=== PATIENT | male | born 1965 | race Caucasian/White ===

== ENCOUNTER 2017-06-14 08:06 | Emergency (ER) | payer BC ==
[~2017-06-14] VITALS: Ht 180.3 cm; Wt 136.3 kg
[~2017-06-14 08:06] MED LIST: ACIDCAP15 PO; ALPHA BRAIN PO; ASPI81TA85 PO; CENTTAB12 PO; DOXY100C PO; LISI10TA2 PO; OMEP40CA2 PO; POTA595T8 PO
[2017-06-14 09:06] LABS: BASO % 0.5 % (0.0-1.0); EOS # 0.1 K/mm3 (0.0-0.50); EOS % 0.9 % (0.0-3.0); LARGE UNSTAINED CELL # 0.1 K/mm3 (0.0-0.4); LARGE UNSTAINED CELL % 1.1 % (0.0-4.0); LYMPH # 0.8 K/mm3 (1.5-4.5); LYMPH % 10.5 % (24.0-44.0); MEAN CORPUSCULAR HEMOGLOBIN 31.4 pg (27.0-33.0); MEAN CORPUSCULAR HGB CONC 34.9 g/dl (32.0-36.5); MEAN CORPUSCULAR VOLUME 89.8 fl (80.0-96.0); MONO # 0.4 K/mm3 (0.0-0.8); MONO % 5.5 % (0.0-5.0); NEUTROPHILS # 5.5 K/mm3 (1.8-7.7); NEUTROPHILS % 81.5 % (36.0-66.0); PLATELET COUNT, AUTOMATED 212 k/mm3 (150-450); RED CELL DISTRIBUTION WIDTH 12.7 % (11.5-14.5); WHITE BLOOD COUNT 6.7 K/mm3 (4.0-10.0)
[2017-06-14] MEDS ORDERED: MORPHINE 4 MG/ML 1ML SYRINGE IV ONE (09:15)
[2017-06-14] MEDS ORDERED: NS 1,000 ML IV ONE (09:15)
[2017-06-14] MEDS ORDERED: KETOROLAC 30 MG/ML VIAL (J1885) IV ONE (09:15)
[2017-06-14] MEDS ORDERED: ONDANSETRON 4MG/2ML VIAL (J2405) IV ONE (09:15)
[2017-06-14 09:17] LABS: ALBUMIN/GLOBULIN RATIO 1.03 (1.00-1.93); ALKALINE PHOSPHATASE 73 U/L (45-117); ALT/SGPT 60 U/L (12-78); AMYLASE 59 U/L (25-115); ANION GAP 7 MEQ/L (8-16); AST/SGOT 33 U/L (15-37); BILIRUBIN,DIRECT 0.3 MG/DL (0.0-0.2); BILIRUBIN,TOTAL 1.2 MG/DL (0.2-1.0); BLOOD UREA NITROGEN 17 MG/DL (7-18); CALCIUM LEVEL 8.8 MG/DL (8.5-10.1); CARBON DIOXIDE LEVEL 26 MEQ/L (21-32); CHLORIDE LEVEL 104 MEQ/L (98-107); CREATININE FOR GFR 1.11 MG/DL (0.70-1.30); GLOMERULAR FILTRATION RATE > 60.0 (>56); GLUCOSE, FASTING 138 MG/DL (70-105); POTASSIUM SERUM 3.8 MEQ/L (3.5-5.1); SODIUM LEVEL 137 MEQ/L (136-145); TOTAL PROTEIN 7.9 GM/DL (6.4-8.2)
[2017-06-14 09:26] LABS: INR 1.04
--- NOTE | 2017-06-14 09:46 | REP ---
Chest one-view HISTORY: Chest pain Comparison: 06/02/2016 Linear density is present in the left lower lobe consistent with scar. The right lung is clear. The heart is normal in size. The pulmonary vasculature is normal in appearance. Impression: Left lower lobe scarring. Signed by Tao Silveira MD 06/14/2017 09:37 A
[2017-06-14] MEDS ORDERED: ISOVUE-370 76% 100ML VIAL (Q9967) As Ordered ONE (09:52)
--- NOTE | 2017-06-14 10:45 | REP ---
CT of the chest pulmonary artery CT angiography: Comparison is the portable chest performed earlier today. There are no emboli in the pulmonary trunk or central pulmonary arteries. There are no emboli in the lobe or segment branches. There are no infiltrates or effusions. There are no nodules or masses. The lung acevedo are clear. The thoracic aorta is unremarkable. Cardiac size is normal. There is no pericardial effusion. In the visualized upper abdomen there is hepato steatosis and cholelithiasis. Impression: Essentially negative CT study of the chest. There are no pulmonary emboli. There are no infiltrates, effusions, nodules or masses. Signed by Joseph Moncada MD 06/14/2017 10:37 A
--- NOTE | 2017-06-14 10:48 | REP ---
CT of the abdomen and pelvis with IV contrast, without bowel contrast: Studies performed. Contiguous to the chest CT utilizing the same IV contrast bolus. The hepatic parenchyma is diffusely less dense than the liver compatible with hepato steatosis. There are no hepatic masses. There are multiple gallbladder calculi. There is no evidence of acute cholecystitis or biliary duct dilatation. The pancreas and spleen are normal size and unremarkable. The adrenals, kidneys and abdominal aorta are unremarkable. There is no bowel distension. Mesentery is unremarkable. There is no ascites. Pelvis: The appendix and cannot be identified, however there is no pericecal inflammation or abscess. There is no ascites or adenopathy. The bladder is unremarkable. The pelvic bowel loops are unremarkable. Impression: Cholelithiasis without CT evidence of acute cholecystitis. The pancreas and portal vein are unremarkable. Hepato steatosis. There is no hydronephrosis. No ascites or adenopathy. No bowel distension. Otherwise, negative CT study of the abdomen and pelvis. Signed by Joseph Moncada MD 06/14/2017 10:39 A
--- NOTE | 2017-06-14 10:59 | REP ---
RIGHT UPPER QUADRANT ULTRASOUND: Real-time sonographic evaluation of the right upper quadrant performed. The study is limited due to patient body habitus and bowel gas. There are gallstones in the gallbladder without gallbladder wall thickening or pericholecystic fluid. There is no intrahepatic biliary dilatation. The common bile duct is not significantly dilated and is at the upper limits of normal at 7 mm. There is diffuse fatty infiltration of the liver. No gross liver mass is seen. The pancreas could not be visualized. Right kidney demonstrates no hydronephrosis with normal size at 12.7 cm in length. There is a cyst in the lower pole of the right kidney 1.6 x 1.7 x 1.8 cm. IMPRESSION: There are gallstones seen in the gallbladder without gallbladder wall thickening, pericholecystic fluid or significant biliary dilatation. The common bile duct upper limits of normal at 7 mm. Fatty infiltration of the liver. Signed by Joseph Driver MD 06/14/2017 05:07 P
[2017-06-14 11:12] VITALS: BP 138/79
[2017-06-14] MEDS ORDERED: ZOFR4TAB3 PO (11:18)
[2017-06-14] MEDS ORDERED: OXYC1TAB23 PO (11:19)
--- NOTE | 2017-06-14 19:50 | ECGEPIP ---
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
== END 2017-06-14 11:47 | disposition home or self-care (01) ==
LOC: M ED 08:06
DX: K80.20 Calculus of gallbladder without cholecystitis without obstruction (principal); R07.9 Chest pain, unspecified; K76.0 Fatty (change of) liver, not elsewhere classified; I10 Essential (primary) hypertension; F17.200 Nicotine dependence, unspecified, uncomplicated; Z79.82 Long term (current) use of aspirin; Z79.899 Other long term (current) drug therapy; Z88.0 Allergy status to penicillin
CPT/HCPCS: 36415; 71010; 71275; 74177; 76705; 80048; 80076; 81001; 82150; 82550; 82553; 83605; 83690; 85025; 85610; 85730; 93005; 93041; 96361; 96374; 96375; 99285; J1885; J2405; Q9967

== ENCOUNTER 2017-08-16 05:41 | Day surgery (SDC) | payer BC ==
[~2017-08-16] VITALS: Ht 180.3 cm; Wt 149.7 kg
[~2017-08-16 05:41] MED LIST changes: +OXYC1TAB23 PO; +ZOFR4TAB3 PO
[2017-08-16] MEDS ORDERED: LR 1,000 ML IV SCH ×2 (06:00→12:00)
[2017-08-16] MEDS ORDERED: LIDOCAINE 1% MDV 20ML VIAL SQ PRN (06:00)
[2017-08-16] MEDS ORDERED: BUPIVACAINE HCL 0.25% 30 ML VIAL As Ordered ONE (07:14)
[2017-08-16] MEDS ORDERED: LIDOCAINE 2% INJ 100 MG/5 ML SDV (FOR ANES.) As Ordered ONE (07:17)
[2017-08-16] MEDS ORDERED: PROPOFOL 200 MG/20 ML VIAL As Ordered ONE ×2 (07:17→08:34)
[2017-08-16] MEDS ORDERED: ROCURONIUM BROMIDE 50 MG/5 ML VIAL/SYRINGE As Ordered ONE ×3 (07:17→10:06)
[2017-08-16] MEDS ORDERED: MIDAZOLAM INJ 2 MG/2 ML VIAL (J2250) As Ordered ONE (07:18)
[2017-08-16] MEDS ORDERED: fentaNYL 250 MCG/5 ML INJECTION (J3010) As Ordered ONE (07:18)
[2017-08-16] MEDS ORDERED: SUCCINYLCHOLINE 100 MG/5 ML SYRINGE (J0330) As Ordered ONE (07:28)
[2017-08-16] MEDS ORDERED: ONDANSETRON 4MG/2ML VIAL (J2405) As Ordered ONE (08:50)
[2017-08-16] MEDS ORDERED: dexameTHASONE 4 MG/ML 1ML VIAL (J1100) As Ordered ONE (08:50)
[2017-08-16] MEDS ORDERED: HYDROmorphone HCL 2 MG/ML 1ML VIAL (J1170) As Ordered ONE (08:53)
[2017-08-16] MEDS ORDERED: GLYCOPYRROLATE INJ 0.2 MG/ML 2 ML VIAL As Ordered ONE (08:58)
[2017-08-16] MEDS ORDERED: NEOSTIGMINE 10 MG/10 ML VIAL (J2710) As Ordered ONE (08:58)
[2017-08-16] MEDS ORDERED: KETOROLAC 60 MG/2 ML VIAL (J1885) As Ordered ONE (10:25)
[2017-08-16] MEDS ORDERED: IBUPROFEN 600 MG TAB PO PRN (11:45)
[2017-08-16] MEDS ORDERED: fentaNYL 100 MCG/2 ML INJECTION (J3010) IV PRN (12:00)
[2017-08-16] MEDS ORDERED: HYDROmorphone HCL 1 MG/ML SYRINGE (J1170) IV PRN (12:00)
[2017-08-16] MEDS ORDERED: NORCO, ANEXSIA 5/325MG TABLET (HYDROcodone/ACETAMINOPHEN) PO PRN (12:00)
[2017-08-16] MEDS ORDERED: ONDANSETRON 4MG/2ML VIAL (J2405) IV PRN (12:00)
[2017-08-16] MEDS ORDERED: METOCLOPRAMIDE INJ 10MG/2ML VIAL (J2765) IV PRN (12:00)
[2017-08-16] MEDS: PERCOCET 5MG/325MG TAB PO PRN ×2 (12:42→13:22)
[2017-08-16] MEDS ORDERED: METOCLOPRAMIDE INJ 10MG/2ML VIAL (J2765) As Ordered ONE (13:06)
[2017-08-16] MEDS ORDERED: PERCOCET 5MG/325MG TAB As Ordered ONE (13:22)
[2017-08-16 15:45] VITALS: BP 164/88
--- NOTE | 2017-08-18 11:29 | RO ---
DATE OF PROCEDURE: 08/16/2017 PREOPERATIVE DIAGNOSIS: Symptomatic gallstones. 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 PROCEDURE PERFORMED: Laparoscopic cholecystectomy with extensive lysis of adhesions and takedown of cholecystogastric fistula. SURGEON: Dr. Johnathan Londono BLOOD DONOR RECRUITER: Dr. Ramirez ANESTHESIA: General. INDICATIONS FOR THE PROCEDURE: The patient is a 52-year-old man who approximately a year earlier had an episode of abdominal pain felt to be biliary in origin. He was treated with antibiotics at another institution. He followed up in my office following this and was at that time asymptomatic. He more recently had another attack of upper abdominal pain felt to be consistent with biliary colic and is now for a laparoscopic cholecystectomy. OPERATIVE PROCEDURE: The patient was placed under general endotracheal anesthesia. The patient's abdomen was prepped and draped in a sterile fashion. 0.25% Marcaine was infiltrated at each of the trocar sites. A short epigastric incision was made along the midline approximately 6 cm above the umbilicus. This was deepened through the abundant subcutaneous fat to the fascia which was opened along the midline. The peritoneum was opened bluntly and a Alvarado cannula was inserted. The abdomen was inflated with carbon dioxide gas. Laparoscope was placed. Initial examination showed abundant omental fat covering the bowel and also filling the subhepatic space. The visualized portions of the liver showed a somewhat yellowish color consistent with fibrofatty infiltration of the liver. The patient was tilted to a reverse Trendelenburg position and rolled to the left. A 5 mm trocar was placed in the left upper quadrant and two 5 mm trocars were placed in the right upper quadrant. Graspers were inserted. Inspection revealed that there were dense adhesions of the omentum to the edge of the liver in the area of the gallbladder. These adhesions were lysed using cautery dissection with the hook cautery. As the adhesions were divided, the shrunken scarred fundus of the gallbladder could be identified. In the course of dissecting the fundus of the gallbladder, it was apparent that there was a dense and firm attachment of the antrum of the stomach to the fundus on the inferior aspect. This appeared as a thin protrusion of the stomach up to the fundus. This was cut right at its junction with the gallbladder and there did appear to be a small lumen suggesting a cholecystogastric fistula in this area. In the course of later dissection, there was also a small amount of bile that extruded from the area of this attachment. There remained fairly extensive adhesions of the omentum to the undersurface of the liver and along the gallbladder. It was possible to grasp the fundus of the gallbladder and elevate the liver somewhat and dissection proceeded along the body and down to the neck of the gallbladder. As dissection proceeded, a junction of two duct structures was identified just inferior to the gallbladder. Further inspection and dissection confirmed that this was the common duct extending superior with the cystic duct extending toward the small scarred gallbladder. With further dissection, it was possible to better identify the cystic duct. The cystic duct was fairly short and appeared somewhat dilated and thickened. With additional dissection, the cholecystic artery could be identified and this was doubly clipped and divided. I attempted to place a clip across the cystic duct without success due to the thickness of the cystic duct. Therefore, a clip was placed incompletely across the cystic duct at the neck of the gallbladder and the cystic duct was then cut with scissors. A #0 Vicryl Endoloop was placed across the stump of the cystic duct to occlude this. With further dissection, the gallbladder was dissected from the gallbladder bed where it was quite scarred, but it was possible to remove the gallbladder intact. The gallbladder was placed in an Endopouch. The subhepatic space was then copiously irrigated with saline and inspected. There was no bleeding. Inspection of the stomach revealed a small nipple-like area where the stomach had been stretched up to attach to the gallbladder. There was no drainage from this area, but I elected to place an Endoloop around this to ensure that there was no leakage from this area. This was accomplished with a # 0 Vicryl Endoloop. Final inspection revealed still no bleeding and no bile leak. The patient was returned to a flat position. The abdomen was deflated of carbon dioxide and the trocars were all removed. The gallbladder was recovered through the Alvarado site. Two stones were palpated readily within the body of the gallbladder. This was sent for permanent pathology. The fascia at the Alvarado site was closed with interrupted simple sutures of #2-0 Vicryl. The skin incisions were all closed with buried #5-0 Vicryl and Steri-Strips. The patient tolerated the procedure well without apparent complication. He was awakened in the operating room, extubated and moved to the recovery room in stable condition. TITI
== END 2017-08-16 16:00 | disposition home or self-care (01) ==
LOC: M SDC 05:41
PROVIDERS: ATTEND Surgery
DX: K80.18 Calculus of gallbladder with other cholecystitis without obstruction (principal); K66.0 Peritoneal adhesions (postprocedural) (postinfection); K82.8 Other specified diseases of gallbladder; K82.3 Fistula of gallbladder; K21.9 Gastro-esophageal reflux disease without esophagitis; I10 Essential (primary) hypertension; E78.2 Mixed hyperlipidemia; R73.01 Impaired fasting glucose; G47.33 Obstructive sleep apnea (adult) (pediatric); E66.01 Morbid (severe) obesity due to excess calories; F17.290 Nicotine dependence, other tobacco product, uncomplicated; Z88.0 Allergy status to penicillin; Z79.82 Long term (current) use of aspirin; Z79.899 Other long term (current) drug therapy
CPT/HCPCS: 47562; 47579; 49329; 88304; J0330; J1100; J1170; J1885; J2250; J2405; J2710; J2765; J3010

== ENCOUNTER 2017-12-04 09:18 | Emergency (ER) | payer OTHER, BC | END 2017-12-04 10:21 | disposition home or self-care (01) | LOC: M ED 09:18 | DX: S43.401A Unspecified sprain of right shoulder joint, initial encounter (principal); W00.9XXA Unspecified fall due to ice and snow, initial encounter; Y92.9 Unspecified place or not applicable; Y93.9 Activity, unspecified; Y99.0 Civilian activity done for income or pay; I10 Essential (primary) hypertension; K21.9 Gastro-esophageal reflux disease without esophagitis; F17.200 Nicotine dependence, unspecified, uncomplicated; M19.011 Primary osteoarthritis, right shoulder; Z79.82 Long term (current) use of aspirin; Z79.899 Other long term (current) drug therapy; Z88.0 Allergy status to penicillin | CPT/HCPCS: 73030 ==

== ENCOUNTER → 2018-03-17 | Outpatient (REF) | payer OTHER ==
[2018-03-17 17:46] LABS: ANION GAP 6 MEQ/L (8-16); BLOOD UREA NITROGEN 12 MG/DL (7-18); CALCIUM LEVEL 8.8 MG/DL (8.5-10.1); CARBON DIOXIDE LEVEL 29 MEQ/L (21-32); CHLORIDE LEVEL 104 MEQ/L (98-107); CREATININE FOR GFR 1.22 MG/DL (0.70-1.30); GLOMERULAR FILTRATION RATE > 60.0 (>56); GLUCOSE, FASTING 86 MG/DL (70-100); POTASSIUM SERUM 3.9 MEQ/L (3.5-5.1); SODIUM LEVEL 139 MEQ/L (136-145)
[2018-03-17 17:51] LABS: HEMATOCRIT 46.8 % (42.0-52.0); HEMOGLOBIN 16.1 g/dl (13.5-17.5); MEAN CORPUSCULAR HEMOGLOBIN 30.1 pg (27.0-33.0); MEAN CORPUSCULAR HGB CONC 34.4 g/dl (32.0-36.5); MEAN CORPUSCULAR VOLUME 87.6 fl (80.0-96.0); PLATELET COUNT, AUTOMATED 213 10^3/uL (150-450); RED BLOOD COUNT 5.34 10^6/uL (4.30-6.10); RED CELL DISTRIBUTION WIDTH 12.6 % (11.5-14.5); WHITE BLOOD COUNT 5.9 10^3/uL (4.0-10.0)
[2018-03-17 18:00] LABS: INR 1.07; PROTHROMBIN TIME 14.1 SECONDS (12.4-14.5)
== END ==
LOC: M SFHCPLAZ 16:04
DX: Z01.818 Encounter for other preprocedural examination (principal)

== ENCOUNTER 2018-03-24 06:42 | Day surgery (SDC) | payer OTHER, BC ==
[2018-03-24] MEDS ORDERED: EPINEPHrine INJ 1 MG/ML 1ML AMP (06:43)
[2018-03-24] MEDS ORDERED: ROPIvacaine 0.5% 30 ML INJECTION (J2795 PER 1MG) (06:43)
[2018-03-24] MEDS ORDERED: dexameTHASONE 10 MG/1 ML VIAL PRES.FREE (J1100) (06:43)
[2018-03-24] MEDS ORDERED: LR 1,000 ML IV ×3 (07:00→14:00)
[2018-03-24] MEDS ORDERED: LIDOCAINE 1% MDV 20ML VIAL SQ (07:00)
[2018-03-24] MEDS ORDERED: ROCURONIUM BROMIDE 50 MG/5 ML VIAL As Ordered (08:42)
[2018-03-24] MEDS ORDERED: PROPOFOL 200 MG/20 ML VIAL As Ordered ×3 (08:42→13:07)
[2018-03-24] MEDS ORDERED: fentaNYL 100 MCG/2 ML INJECTION (J3010) As Ordered ×2 (08:42→09:18)
[2018-03-24] MEDS ORDERED: LIDOCAINE 2% INJ 100 MG/5 ML SDV (FOR ANES.) As Ordered (08:42)
[2018-03-24] MEDS ORDERED: MIDAZOLAM INJ 2 MG/2 ML VIAL (J2250) As Ordered (09:18)
[2018-03-24] MEDS: fentaNYL 100 MCG/2 ML INJECTION (J3010) IV (09:42)
[2018-03-24] MEDS: MIDAZOLAM INJ 2 MG/2 ML VIAL (J2250) IV (09:42)
[2018-03-24] MEDS: VANCOMYCIN HCL 500 MG in D5W MINI-BAG PLUS 100 ML IV (10:05)
[2018-03-24] MEDS: VANCOMYCIN HCL 1,000 MG, VIAL MATE ADAPTER 1 EACH in D5W 250 ML IV (10:05)
[2018-03-24] MEDS ORDERED: METOCLOPRAMIDE INJ 10MG/2ML VIAL (J2765) As Ordered (10:52)
[2018-03-24] MEDS ORDERED: GLYCOPYRROLATE INJ 0.2 MG/ML 2 ML VIAL As Ordered (11:19)
[2018-03-24] MEDS ORDERED: ONDANSETRON 4MG/2ML VIAL (J2405) As Ordered (11:19)
[2018-03-24] MEDS: EPINEPHrine 1MG/ML INJ 30ML MD-VIAL As Ordered (11:22)
[2018-03-24] MEDS ORDERED: PERCOCET 5MG/325MG TAB PO (14:00)
[2018-03-24] MEDS ORDERED: fentaNYL 100 MCG/2 ML INJECTION (J3010) IV (14:00)
[2018-03-24] MEDS ORDERED: METOCLOPRAMIDE INJ 10MG/2ML VIAL (J2765) IV (14:00)
[2018-03-24] MEDS: ONDANSETRON 4MG/2ML VIAL (J2405) IV (14:30)
== END 2018-03-24 16:30 | disposition home or self-care (01) ==
LOC: M SDC 06:42
DX: M75.121 Complete rotator cuff tear or rupture of right shoulder, not specified as traumatic (principal); S46.011A Strain of muscle(s) and tendon(s) of the rotator cuff of right shoulder, initial encounter; M75.41 Impingement syndrome of right shoulder; M94.211 Chondromalacia, right shoulder; M19.011 Primary osteoarthritis, right shoulder; I10 Essential (primary) hypertension; K21.9 Gastro-esophageal reflux disease without esophagitis; R51 Headache; G47.33 Obstructive sleep apnea (adult) (pediatric); Z79.899 Other long term (current) drug therapy; Z88.0 Allergy status to penicillin; Z72.0 Tobacco use; W00.0XXA Fall on same level due to ice and snow, initial encounter; Y92.89 Other specified places as the place of occurrence of the external cause; Y93.89 Activity, other specified; Y99.0 Civilian activity done for income or pay
CPT/HCPCS: 29827

== ENCOUNTER 2018-08-02 05:56 | Emergency (ER) | payer BC, OTHER ==
[2018-08-02 06:25] LABS: BASO # 0.1 10^3/uL (0.0-0.2); BASO % 0.7 % (0.0-1.0); EOS # 0.2 10^3/uL (0.0-0.50); HEMATOCRIT 48.4 % (42.0-52.0); HEMOGLOBIN 16.3 g/dl (13.5-17.5); IMMATURE GRANULOCYTE % 1.1 % (0-3.0); LYMPH # 2.3 10^3/uL (1.5-4.5); LYMPH % 30.8 % (24.0-44.0); MEAN CORPUSCULAR HEMOGLOBIN 30.2 pg (27.0-33.0); MEAN CORPUSCULAR HGB CONC 33.7 g/dl (32.0-36.5); MEAN CORPUSCULAR VOLUME 89.8 fl (80.0-96.0); MONO # 0.6 10^3/uL (0.0-0.8); MONO % 8.6 % (0.0-5.0); NEUTROPHILS # 4.2 10^3/uL (1.8-7.7); NEUTROPHILS % 56.8 % (36.0-66.0); PLATELET COUNT, AUTOMATED 206 10^3/uL (150-450); RED BLOOD COUNT 5.39 10^6/uL (4.30-6.10); RED CELL DISTRIBUTION WIDTH 12.8 % (11.5-14.5); WHITE BLOOD COUNT 7.4 10^3/uL (4.0-10.0)
[2018-08-02 06:35] LABS: AMMONIA 104 uMOL/L (<32)
[2018-08-02 06:49] LABS: LACTIC ACID SEPSIS PROTOCOL 11.4 MMOL/L (0.4-2.0)
[2018-08-02 06:50] LABS: ALBUMIN 3.7 GM/DL (3.2-5.2); ALBUMIN/GLOBULIN RATIO 1.06 (1.00-1.93); ALKALINE PHOSPHATASE 67 U/L (45-117); ALT/SGPT 37 U/L (12-78); ANION GAP 22 MEQ/L (8-16); AST/SGOT 19 U/L (7-37); BILIRUBIN,DIRECT 0.2 MG/DL (0.0-0.2); BILIRUBIN,TOTAL 0.9 MG/DL (0.2-1.0); BLOOD UREA NITROGEN 11 MG/DL (7-18); CALCIUM LEVEL 8.9 MG/DL (8.5-10.1); CARBON DIOXIDE LEVEL 14 MEQ/L (21-32); CHLORIDE LEVEL 105 MEQ/L (98-107); CPK CREATINE PHOSPHOKINASE 122 U/L (39-308); CREATININE FOR GFR 1.64 MG/DL (0.70-1.30); ETHYL ALCOHOL (ETHANOL) < 0.003 % (0.000-0.010); GLUCOSE, FASTING 140 MG/DL (70-100); POTASSIUM SERUM 3.8 MEQ/L (3.5-5.1); SODIUM LEVEL 141 MEQ/L (136-145); TOTAL PROTEIN 7.2 GM/DL (6.4-8.2); TROPONIN I < 0.02 NG/ML (< 0.10)
[2018-08-02] MEDS ORDERED: NS 1,000 ML IV (07:00)
[2018-08-02 07:04] LABS: ACETAMINOPHEN LEVEL < 2.0 UG/ML (10.0-30.0)
[2018-08-02] MEDS: NS 1,000 ML IV (07:04)
[2018-08-02] MEDS: LACTULOSE 20 GM/30 ML SYRUP UD PO (07:09)
[2018-08-02] MEDS: levETIRAcetam INJection 1,000 MG in D5W 100 ML IV (07:22)
[2018-08-02] MEDS: cefTRIAXone SOD 2 GM in D5W MINI-BAG PLUS 50 ML IV (07:26)
[2018-08-04 12:57] LABS: BEDSIDE GLUCOSE 152 MG/DL (70-105)
== END 2018-08-02 07:53 | disposition short-term general hospital (02) ==
LOC: M ED 05:56
DX: E72.20 Disorder of urea cycle metabolism, unspecified (principal); R56.9 Unspecified convulsions; I62.00 Nontraumatic subdural hemorrhage, unspecified; I10 Essential (primary) hypertension; L71.9 Rosacea, unspecified; Z79.899 Other long term (current) drug therapy; Z88.0 Allergy status to penicillin
CPT/HCPCS: J0696

== ENCOUNTER 2018-12-14 13:16 | Emergency (ER) | payer OTHER, BC ==
[~2018-12-14] VITALS: Ht 180.3 cm; Wt 145.4 kg
[~2018-12-14 13:16] MED LIST changes: +ZOFR4TAB14 PO; -ZOFR4TAB3 PO
[2018-12-14] MEDS ORDERED: OMEP40CA2 PO (13:33)
[2018-12-14] MEDS ORDERED: KEPP10002 PO (13:33)
[2018-12-14] MEDS ORDERED: WARF-23 PO (13:33)
--- NOTE | 2018-12-14 14:05 | REP ---
CT BRAIN WITHOUT IV CONTRAST: CT brain performed without IV contrast. Ventricles are normal in size and position with no midline shift of mass effect. Driver-white differentiation is well maintained. There is no acute intracranial hemorrhage or extra-axial fluid collection. No skull fracture if seen. IMPRESSION: Negative noncontrast CT brain. Electronically Signed by Joseph Driver MD 12/14/2018 07:06 P
[2018-12-14 15:23] LABS: HEMATOCRIT 46.1 % (42.0-52.0); HEMOGLOBIN 15.8 g/dl (13.5-17.5); MEAN CORPUSCULAR HEMOGLOBIN 29.5 pg (27.0-33.0); MEAN CORPUSCULAR HGB CONC 34.3 g/dl (32.0-36.5); PLATELET COUNT, AUTOMATED 195 10^3/uL (150-450); RED BLOOD COUNT 5.36 10^6/uL (4.30-6.10); WHITE BLOOD COUNT 4.1 10^3/uL (4.0-10.0)
[2018-12-14 15:27] LABS: INR 2.25; PROTHROMBIN TIME 25.3 SECONDS (12.1-14.4)
[2018-12-14 15:28] LABS: PARTIAL THROMBOPLASTIN TIME 38.2 SECONDS (25.4-37.6)
[2018-12-14 15:34] LABS: ALBUMIN 3.6 GM/DL (3.2-5.2); ALT/SGPT 44 U/L (12-78); BILIRUBIN,DIRECT 0.1 MG/DL (0.0-0.2); BILIRUBIN,TOTAL 0.8 MG/DL (0.2-1.0); BLOOD UREA NITROGEN 12 MG/DL (7-18); CARBON DIOXIDE LEVEL 29 MEQ/L (21-32); CHLORIDE LEVEL 100 MEQ/L (98-107); CREATININE FOR GFR 1.24 MG/DL (0.70-1.30); GLOMERULAR FILTRATION RATE > 60.0 (>56); GLUCOSE, FASTING 149 MG/DL (70-100); POTASSIUM SERUM 3.3 MEQ/L (3.5-5.1); SODIUM LEVEL 135 MEQ/L (136-145); TOTAL PROTEIN 7.4 GM/DL (6.4-8.2)
[2018-12-14] MEDS ORDERED: PROHANCE 279.3MG/ML 15ML VIAL (A9576) As Ordered ONE (16:04)
[2018-12-14] MEDS ORDERED: POTASSIUM CHLORIDE 10 MEQ SR TABLET PO ONE (16:30)
--- NOTE | 2018-12-14 19:19 | REPVR ---
EXAM: MR Head Without and With Contrast EXAM DATE/TIME: 12/14/2018 4:17 PM CLINICAL HISTORY: 53 years old, male; Pain; Headache; Headache not specified; Patient HX: HX thrombus, headache TECHNIQUE: MR of the head without and with intravenous contrast. CONTRAST: 25 ml of prohance administered intravenously. COMPARISON: CT Head without contrast 12/14/2018 1:19 PM FINDINGS: Brain: Unremarkable. Ventricles: Normal. No ventriculomegaly. Bones/joints: Unremarkable. Soft tissues: Subcutaneous nodule left posterior parietal region stable in appearance. Finding may represent an apocrine cyst. Sinuses: Normal as visualized. No acute sinusitis. Mastoid air cells: Normal as visualized. No mastoid effusion. Orbits: Unremarkable. Other vasculature: Filling defect posterior sagittal sinus may represent a nonocclusive thrombus versus flow artifact. IMPRESSION: Filling defect posterior sagittal sinus may represent a nonocclusive thrombus versus flow artifact. Correlation with MRV suggested. Electronically signed by: Sincere Burks On 12/14/2018 17:39:32 PM
[2018-12-14 20:35] VITALS: BP 123/77
--- NOTE | 2018-12-16 08:55 | ED PDOC ---
Post-Departure Follow-Up letitia muñiz faxed formal report of mri brain for fu Marita Campoverde MD Dec 16, 2018 08:55
== END 2018-12-14 20:51 | disposition home or self-care (01) ==
LOC: M ED 13:16
DX: R51 Headache (principal); G47.33 Obstructive sleep apnea (adult) (pediatric); R93.0 Abnormal findings on diagnostic imaging of skull and head, not elsewhere classified; F17.290 Nicotine dependence, other tobacco product, uncomplicated; Z79.01 Long term (current) use of anticoagulants; Z79.899 Other long term (current) drug therapy; Z88.0 Allergy status to penicillin; Z86.718 Personal history of other venous thrombosis and embolism
CPT/HCPCS: 36415; 70450; 70546; 70553; 80048; 80076; 85027; 85610; 85730; 99284; A9576

== ENCOUNTER → 2019-02-16 | Outpatient (REF) | payer OTHER, BC ==
[~2019-02-16] MED LIST changes: +KEPP10002 PO; +WARF-23 PO
[2019-02-16 12:59] LABS: INR 1.88; PROTHROMBIN TIME 21.9 SECONDS (12.1-14.4)
== END ==
LOC: M LABDRAW1 11:54
PROVIDERS: ATTEND Orthopaedic Surgery
DX: S46.011D Strain of muscle(s) and tendon(s) of the rotator cuff of right shoulder, subsequent encounter (principal); X58.XXXD Exposure to other specified factors, subsequent encounter; Y92.9 Unspecified place or not applicable

== ENCOUNTER → 2019-05-21 | Outpatient (CLI) | payer BC, OTHER ==
--- NOTE | 2019-05-22 10:05 | REP ---
MRI RIGHT SHOULDER: TECHNIQUE: Axial T2 fat sat, gradient echo, sagittal oblique T2 fat sat, coronal oblique T1, T2 fat sat. COMPARISON: 12/25/2017. Since the prior study the patient has had surgery 03/24/2018, with rotator cuff repair, chondroplasty, labral debridement, biceps tenotomy and subacromial depression. There is focal increased signal in the supraspinatus tendon on T2-weighted images, extending through the full thickness of the tendon, just beneath the acromion. This is consistent with a partial full thickness tear. Other rotator cuff tendons demonstrate no abnormal signal and appear intact. There are mild hypertrophic changes at the acromioclavicular joint with a tiny amount of fluid in the joint and mild subchondral cystic change in the distal end of the clavicle as well as mild subchondral marrow edema. No abnormal signal is seen in the visualized biceps tendon within the bicipital groove. There is no Hill-Sachs deformity. The deltoid muscle demonstrates no abnormal signal. Labrum is somewhat truncated with possibly some scattered fraying. No discrete labral tear is seen. There is no paralabral cyst. Cervical anchors are seen in the humeral head from the prior rotator cuff repair. No other significant marrow signal abnormality is seen. There is a normal amount of joint fluid. IMPRESSION: Mild hypertrophic changes at the acromioclavicular joint. Partial full thickness tear supraspinatus tendon with a somewhat longitudinal configuration. Other rotator cuff tendons are intact. Labrum is truncated compatible with prior surgical debridement. There may be some scattered fraying, but I do not see a discrete labral tear. Electronically Signed by Joseph Driver MD 05/24/2019 07:21 P
== END ==
LOC: M RAD 14:35
PROVIDERS: ATTEND Orthopaedic Surgery
DX: S46.011A Strain of muscle(s) and tendon(s) of the rotator cuff of right shoulder, initial encounter (principal)

== ENCOUNTER 2021-03-13 07:10 | Emergency (ER) | payer OTHER ==
[~2021-03-13] VITALS: Ht 182.9 cm; Wt 128.8 kg
[~2021-03-13 07:10] MED LIST changes: -ASPI81TA85 PO; +ASPI81TA86 PO; +LISI10TA15 PO; -LISI10TA2 PO; -OMEP40CA2 PO; +OMEP40CA97 PO
[2021-03-13] MEDS ORDERED: POTA10CA32 PO (07:24)
[2021-03-13] MEDS ORDERED: ATOR1TAB21 PO (07:24)
--- NOTE | 2021-03-13 08:23 | REP ---
INDICATION: injury. COMPARISON: None TECHNIQUE: Four views FINDINGS: There is a lateral corner fracture of the base of the distal phalanx of the 1st digit. This has an intra-articular component. IMPRESSION: As above <Electronically signed by Flavio Hernandez > 03/13/21 [id number]
[2021-03-13 09:05] VITALS: BP 130/68
== END 2021-03-13 09:06 | disposition home or self-care (01) ==
LOC: M ED 07:10
DX: S92.424A Nondisplaced fracture of distal phalanx of right great toe, initial encounter for closed fracture (principal); W20.8XXA Other cause of strike by thrown, projected or falling object, initial encounter; Y92.9 Unspecified place or not applicable; Y93.9 Activity, unspecified; Y99.0 Civilian activity done for income or pay; Z79.01 Long term (current) use of anticoagulants; Z79.899 Other long term (current) drug therapy

== ENCOUNTER → 2022-01-29 | Outpatient (CLI) | payer OTHER ==
[~2022-01-29] MED LIST changes: +ATOR1TAB21 PO; -DOXY100C PO; +DOXY100C3 PO; -LISI10TA15 PO; +LISI10TA24 PO; +OMEP40CA4 PO; -OMEP40CA97 PO; +POTA10CA32 PO
[2022-01-29 12:09] LABS: HEMATOCRIT 47.5 % (42.0-52.0); HEMOGLOBIN 15.6 g/dl (13.5-17.5); MEAN CORPUSCULAR HEMOGLOBIN 29.6 pg (27.0-33.0); MEAN CORPUSCULAR HGB CONC 32.8 g/dl (32.0-36.5); MEAN CORPUSCULAR VOLUME 90.1 fl (80.0-96.0); PLATELET COUNT, AUTOMATED 195 10^3/uL (150-450); RED BLOOD COUNT 5.27 10^6/uL (4.30-6.10); WHITE BLOOD COUNT 6.5 10^3/uL (4.0-10.0)
[2022-01-29 12:19] LABS: APPEARANCE, URINE CLEAR (CLEAR); BACTERIA, URINE AUTO NEGATIVE (NEGATIVE); BILIRUBIN, URINE AUTO NEGATIVE (NEGATIVE); BLOOD, URINE BLOOD NEGATIVE (NEGATIVE); COLOR, URINE YELLOW (YELLOW); GLUCOSE, URINE (UA) AUTO NEGATIVE (NEGATIVE); KETONE, URINE AUTO NEGATIVE (NEGATIVE); LEUKOCYTE ESTERASE, URINE AUTO NEGATIVE (NEGATIVE); MUCUS, URINE SMALL (NEGATIVE); NITRITE, URINE AUTO NEGATIVE (NEGATIVE); PROTEIN, URINE AUTO NEGATIVE (NEGATIVE); RBC, URINE AUTO 0 /HPF (0-3); SPECIFIC GRAVITY URINE AUTO 1.017 (1.002-1.035); SQUAMOUS EPITHELIAL CELL UR AU 1 /HPF (0-6); UROBILINOGEN, URINE AUTO 0.2 mg/dL (0.0-2.0); WBC, URINE AUTO 1 /HPF (0-3)
[2022-01-29 12:20] LABS: INR 1.95; PROTHROMBIN TIME 22.6 SECONDS (12.7-14.5)
[2022-01-29 12:40] LABS: ALBUMIN 4.3 GM/DL (3.2-5.2); ALT/SGPT 34 U/L (12-78); BILIRUBIN,TOTAL 1.1 MG/DL (0.2-1.0); BLOOD UREA NITROGEN 12 MG/DL (7-18); CALCIUM LEVEL 9.4 MG/DL (8.5-10.1); CARBON DIOXIDE LEVEL 31 MEQ/L (21-32); CHLORIDE LEVEL 108 MEQ/L (98-107); GLOMERULAR FILTRATION RATE > 60.0 (>56); GLUCOSE, FASTING 93 MG/DL (70-100); POTASSIUM SERUM 4.8 MEQ/L (3.5-5.1); SODIUM LEVEL 141 MEQ/L (136-145); TOTAL PROTEIN 7.2 GM/DL (6.4-8.2); URIC ACID 3.5 MG/DL (3.5-7.2)
[2022-01-29 12:48] LABS: TOTAL 25(OH) VITAMIN D 21.9 NG/ML (30.0-100.0)
== END ==
LOC: M LAB 10:03
PROVIDERS: ATTEND Internal Medicine
DX: E87.6 Hypokalemia (principal); E78.2 Mixed hyperlipidemia; I10 Essential (primary) hypertension; R73.03 Prediabetes; Z79.899 Other long term (current) drug therapy

== ENCOUNTER 2022-06-29 05:38 | Emergency (ER) | payer OTHER ==
[~2022-06-29] VITALS: Ht 179.1 cm; Wt 137.0 kg
[2022-06-29] MEDS ORDERED: ACET-861 PO (06:02)
[2022-06-29] MEDS ORDERED: ATOR40TA75 PO (06:02)
[2022-06-29] MEDS ORDERED: WARF-18 PO (06:02)
[2022-06-29] MEDS ORDERED: SALS750T10 PO (06:02)
[2022-06-29] MEDS ORDERED: WARF-23 PO (06:02)
[2022-06-29] MEDS ORDERED: TRAM50TA2 PO (06:03)
[2022-06-29 06:45] LABS: BASO # 0.1 10^3/uL (0.0-0.2); BASO % 1.1 % (0.0-1.0); EOS # 0.1 10^3/uL (0.0-0.5); EOS % 2.9 % (0.0-3.0); HEMATOCRIT 46.3 % (42.0-52.0); HEMOGLOBIN 15.5 g/dl (13.5-17.5); LYMPH # 1.2 10^3/uL (1.5-5.0); LYMPH % 26.5 % (24.0-44.0); MEAN CORPUSCULAR HEMOGLOBIN 30.2 pg (27.0-33.0); MEAN CORPUSCULAR HGB CONC 33.5 g/dl (32.0-36.5); MEAN CORPUSCULAR VOLUME 90.3 fl (80.0-96.0); MONO # 0.4 10^3/uL (0.0-0.8); NEUTROPHILS # 2.7 10^3/uL (1.5-8.5); NEUTROPHILS % 59.8 % (36.0-66.0); PLATELET COUNT, AUTOMATED 184 10^3/uL (150-450); RED BLOOD COUNT 5.13 10^6/uL (4.30-6.10); WHITE BLOOD COUNT 4.6 10^3/uL (4.0-10.0)
[2022-06-29 06:51] VITALS: BP 160/90
[2022-06-29 07:04] LABS: INR 2.05; PROTHROMBIN TIME 23.6 SECONDS (12.7-14.5)
[2022-06-29 07:05] LABS: PARTIAL THROMBOPLASTIN TIME 36.6 SECONDS (25.9-37.0)
[2022-06-29 07:22] LABS: CK-MB VALUE MASS 2.8 NG/ML (<3.6); MB/CK RELATIVE INDEX 0.74 (< OR =4)
[2022-06-29 07:23] LABS: BLOOD UREA NITROGEN 11 MG/DL (7-18); CALCIUM LEVEL 8.6 MG/DL (8.5-10.1); CARBON DIOXIDE LEVEL 29 MEQ/L (21-32); CHLORIDE LEVEL 105 MEQ/L (98-107); CREATININE FOR GFR 1.17 MG/DL (0.70-1.30); GLOMERULAR FILTRATION RATE > 60.0 (>56); GLUCOSE, FASTING 140 MG/DL (70-100); POTASSIUM SERUM 5.7 MEQ/L (3.5-5.1); SODIUM LEVEL 137 MEQ/L (136-145)
[2022-06-29] MEDS ORDERED: NS 1,000 ML IV ONE (08:55)
[2022-06-29] MEDS ORDERED: METOCLOPRAMIDE INJ 10MG/2ML VIAL (J2765 PER 1) IV ONE (08:55)
[2022-06-29] MEDS ORDERED: AMIT10TA7 PO (10:12)
[2022-06-29 10:58] VITALS: BP 148/80
== END 2022-06-29 11:02 | disposition home or self-care (01) ==
LOC: M ED 05:38
DX: G43.909 Migraine, unspecified, not intractable, without status migrainosus (principal); I45.9 Conduction disorder, unspecified; I10 Essential (primary) hypertension; Z88.0 Allergy status to penicillin; Z79.811 Long term (current) use of aromatase inhibitors; Z79.899 Other long term (current) drug therapy
CPT/HCPCS: 70450; 71045; 80047; 80048; 82550; 82553; 84132; 84484; 85025; 85610; 85730; 86850; 86900; 86901; 93005; 93041; 94760; 96361; 96374; 99284; J2765

== ENCOUNTER 2024-01-03 15:12 | Emergency (ER) | payer OTHER ==
[~2024-01-03] VITALS: Ht 177.8 cm; Wt 131.4 kg
[~2024-01-03 15:12] MED LIST changes: +ACET-861 PO; +AMIT10TA7 PO; +ATOR40TA75 PO; -POTA10CA32 PO; +POTA10CA60 PO; +SALS750T10 PO; +TRAM50TA2 PO; +WARF-18 PO
[2024-01-03] MEDS: ACETAMINOPHEN 500 MG TAB PO ONE (15:58)
[2024-01-03 16:37] LABS: BASO % 0.3 % (0.0-1.0); HEMATOCRIT 46.7 % (42.0-52.0); HEMOGLOBIN 15.9 g/dl (13.5-17.5); LYMPH # 0.3 10^3/uL (1.5-5.0); MEAN CORPUSCULAR HEMOGLOBIN 30.1 pg (27.0-33.0); MEAN CORPUSCULAR VOLUME 88.3 fl (80.0-96.0); MONO % 9.5 % (2.0-8.0); NEUTROPHILS # 9.2 10^3/uL (1.5-8.5); NEUTROPHILS % 86.9 % (36.0-66.0); PLATELET COUNT, AUTOMATED 181 10^3/uL (150-450); RED BLOOD COUNT 5.29 10^6/uL (4.30-6.10); WHITE BLOOD COUNT 10.6 10^3/uL (4.0-10.0)
[2024-01-03 16:56] LABS: LIPASE 56 U/L (12-53)
[2024-01-03 16:57] LABS: AMYLASE 111 U/L (30-118)
[2024-01-03 16:58] LABS: ALBUMIN 3.5 G/DL (3.2-5.2); ALKALINE PHOSPHATASE 507 U/L (46-116); ALT/SGPT 273 U/L (7.0-40); AST/SGOT 254 U/L (<34); BILIRUBIN,DIRECT 1.8 MG/DL (<0.4); BLOOD UREA NITROGEN 15 MG/DL (9-23); CALCIUM LEVEL 8.8 MG/DL (8.5-10.1); CARBON DIOXIDE LEVEL 24 MMOL/L (20-31); CHLORIDE LEVEL 98 MMOL/L (98-107); CREATININE FOR GFR 1.07 MG/DL (0.70-1.30); GLOMERULAR FILTRATION RATE > 60.0 (>56); GLUCOSE, FASTING 153 MG/DL (60-100); POTASSIUM SERUM 3.4 MMOL/L (3.5-5.1); SODIUM LEVEL 132 MMOL/L (136-145); TOTAL PROTEIN 7.4 G/DL (5.7-8.2)
[2024-01-03] MEDS: NS IV ONE (19:53)
[2024-01-03 20:19] LABS: MAGNESIUM LEVEL 1.5 MG/DL (1.8-2.4)
[2024-01-03 20:49] LABS: ERYTHROCYTE SEDIMENTATION RATE 88 mm/hr (0-20)
[2024-01-03 21:01] LABS: HEPATITIS C VIRUS ABY INDEX < 0.02 INDEX (<0.8)
[2024-01-03 21:02] LABS: HEPATITIS B CORE ANTIBODY IGM NEGATIVE (NEGATIVE)
[2024-01-03] MEDS: KETOROLAC 30 MG/ML 1ML VIAL IV ONE (21:21)
[2024-01-03] MEDS: ONDANSETRON 4MG 2ML VIAL IV ONE (21:21)
[2024-01-03] MEDS: CIPROFLOXACIN 400 MG in IV 1 EA IV ONE (21:49)
[2024-01-03 22:30] VITALS: BP 131/72; O2SAT 95
[2024-01-03 22:40] VITALS: TEMP 102.1
[2024-01-03] MEDS ORDERED: metroNIDAZOLE 500 MG in IV 1 EA IV ONE (23:00)
== END 2024-01-03 22:42 | disposition short-term general hospital (02) ==
LOC: M ED 15:12
DX: K83.09 Other cholangitis (principal); I10 Essential (primary) hypertension; F17.200 Nicotine dependence, unspecified, uncomplicated; Z88.0 Allergy status to penicillin; Z90.49 Acquired absence of other specified parts of digestive tract; Z86.79 Personal history of other diseases of the circulatory system; Z79.02 Long term (current) use of antithrombotics/antiplatelets; Z79.811 Long term (current) use of aromatase inhibitors; Z79.01 Long term (current) use of anticoagulants; Z79.899 Other long term (current) drug therapy
CPT/HCPCS: 70450; 76705; 80048; 80074; 80076; 82140; 82150; 83605; 83690; 83735; 85025; 85652; 86140; 87040; 87077; 87186; 87486; 87581; 87633; 87798; 93005; 93041; 96361; 96365; 96375; 99285; J0744; J1885; J2405